=== PATIENT | male | born 1975 ===

== ENCOUNTER 2016-09-27 12:58 | Inpatient (IN) | payer OTHER ==
[~2016-09-27] VITALS: Ht 188 cm; Wt 74.4 kg
--- NOTE | 2016-09-27 15:26 | ED CLINICAL REPORT ---
Clinical Report - Physicians/Mid Levels [facility] [address] [place] [address] 09/27/2016 13:00 [id number] Time Seen: 13:46 Ernesto 14 2016. Arrived- By private vehicle. Historian- patient and family. HISTORY OF PRESENT ILLNESS Chief Complaint: VOMITING BLOOD. This started just prior to arrival, has been mild and is still present. The patient has had vomiting and abdominal pain but not had rectal pain. No constipation. (Patient was in the methadone clinic today, after taking his medications, he had emesis, hematemesis, has not cupful, bright red blood, and some epigastric pain, minimal pain now, however has nausea. NO melana, brown stool. NO h/o similar. Denies use of excessive nsaid, at times motrin twice a week, at times uses tylenol as well. Denies excessive aspirin use. Denies gerd/ pud. Denies any excessive etoh use.). No known contact with a sick individual. REVIEW OF SYSTEMS No dizziness, weakness, blurred vision or sore throat. No complaint of rectal foreign body. All systems otherwise negative, except as recorded above. PAST HISTORY Has not had GI bleeding. No rectal fissure. Problems: Hx of IVD use. Fall. Contusion. Scoliosis. Tetanus Status. Additional Surgeries: Fracture Repair. Medications: Methadone HCl Oral. Methadone HCl Oral. Methadone HCl Oral 150 mg, daily. Allergies: NKDA. None. SOCIAL HISTORY History of drug use: marijuana. No alcohol use. ADDITIONAL NOTES The nursing notes have been reviewed. PHYSICAL EXAM Vital Signs: 09/27/2016 13:42 BP: 127/99. HR: 71. RR: 19. O2 saturation: 100%. Temp: 98.7 F. Pain level now: 0/10. Appearance: Alert. Eyes: Eyes normal inspection. ENT: Nose normal. Pharynx normal. Neck: Normal inspection. CVS: Normal heart rate and rhythm. Heart sounds normal. Respiratory: No respiratory distress. Breath sounds normal. No accessory muscle use or decreased air movement. Abdomen: Mild tenderness in the epigastric area. Bowel sounds normal. Rectal: Dark and light stool. Rectal exam normal and nontender. Stool color normal. Stool heme negative. (POC test reference range: negative). No digital exam tenderness. (chaperoned with TOMMY HOANG). Neuro: Oriented X 3. No motor deficit. LABS, X-RAYS, AND EKG Laboratory Tests: CBC w Diff: (JOSE: 09/27/2016 14:29) ( [facility] 09/27/2016 14:48) Final results Test Result Flag Units (Reference) WHITE BLOOD COUNT 8.2 K/uL (4.5-11.5) RED BLOOD COUNT 5.14 M/uL (4.50-5.90) HEMOGLOBIN 15.2 gm/dL (13.5-17.5) HEMATOCRIT 45.9 % (41.0-53.0) MEAN CELL VOLUME 89 fL (80-100) MEAN CORPUSCULAR HGB 30 pg (26-34) MEAN CORPUSCULAR HGB CONC 33 g/dL (31-37) RED CELL DISTRIBUTION WIDTH 14.1 % (11.6-14.8) PLATELET COUNT 328 K/uL (150-400) NEUTROPHIL % 84.3 H % (50-75) LYMPH % 10.8 L % (25-40) MONO % 4.4 % (3-14) EOSINOPHIL % 0.1 % (0-4) BASOPHIL % 0.4 % (0-2) PT with INR: (JOSE: 09/27/2016 14:29) ( [facility] 09/27/2016 15:00) Final results Test Result Flag Units (Reference) INR 0.9 (0.8-1.2) Low Intensity Therapy: INR 1.5-2.0 PT range 18.5-23.1Mod.Intensity Therapy: INR 2.0-3.0 PT range 23.1-31.5High Intensity Therapy: INR 2.5-3.5 PT range 27.4-35.5High Intensity Therapy 2: INR 3.0-4.0 PT range 31.5-39.3 APTT 31 SECONDS (24-34) Urine Drug Screen: (JOSE: 09/27/2016 13:30) ( [facility] 09/27/2016 15:29) Final results Test Result Flag Units (Reference) AMPHETAMINE/METHAMPHETAMINE NEGATIVE (NEGATIVE) BARBITURATE NEGATIVE (NEGATIVE) BENZODIAZEPINE NEGATIVE (NEGATIVE) CANNABINOID POSITIVE H (NEGATIVE) COCAINE NEGATIVE (NEGATIVE) ECSTASY NEGATIVE (NEGATIVE) METHADONE POSITIVE H (NEGATIVE) OPIATE NEGATIVE (NEGATIVE) The urine drug screen is a qualitative screening test fordrug overdose and abuse. All screen results should beconsidered as presumptive.Drugs screened for are as follows:BenzodiazepinesCocaineAmphetamines/MetamphetaminesTHC (Tetrahydrocannabinol)OpiatesBarbituratesEcstasyMethadonePositive results are unconfirmed. For confirmation, notifythe lab for the specimen to be sent to the reference lab.All confirmations must be performed by a differentmethodology.The ingestion of natural herbal and plant productscontaining Ephedra/Ephedra metabolites can produce in urineone or more substances capable of cross reacting withamphetamine/methamphetamine immunoassays. These testsprovide a preliminary result only. A more specificalternative chemical method must be used to obtain aconfirmed analytical result. [id number]: (JOSE: 09/27/2016 14:29) ( FlgRcvd 09/27/2016 15:32) Final results Test Result Flag Units (Reference) HIV-1 P24 ANTIGEN NEGATIVE (NEGATIVE) HIV-1 AND OR HIV-2 ANTIBODY NEGATIVE (NEGATIVE) CMP: (JOSE: 09/27/2016 14:29) ( FlgRcvd 09/27/2016 15:07) Final results Test Result Flag Units (Reference) GLUCOSE 115 H mg/dL (70-110) BUN 5 L mg/dL (7-18) CREATININE 0.9 mg/dL (0.6-1.3) Estimated GFR >60 mL/min Estimated GFR- >60 mL/min Note: Persistent reduction over 3 months in eGFR<60 mL/min/1.73 m2 defines CKD. Patients with eGFR values>=60 mL/min/1.73 m2 may also have CKD if evidence ofpersistent proteinuria. Additional information may be foundat www.[email or web address].org. SODIUM 143 mmol/L (136-145) POTASSIUM 3.7 mmol/L (3.5-5.1) CHLORIDE 103 mmol/L (98-107) CARBON DIOXIDE 30 mmol/L (21-32) CALCIUM 9.3 mg/dL (8.5-10.1) TOTAL PROTEIN 8.9 H g/dL (6.4-8.2) ALBUMIN 4.1 g/dL (3.3-5.0) BILIRUBIN, TOTAL 0.6 mg/dL (0.0-1.0) ALKALINE PHOSPHATASE 69 U/L (46-116) AST (SGOT) 22 U/L (15-37) ALT (SGPT) 22 U/L (12-78) LIPASE 117 U/L (73-393) . PROGRESS AND PROCEDURES Course of Care: NG placed, pt pulled his first NG out, exposure of RN to face/ shirt, denies any mucos membrane exposures, will order HIV/HEP C, pt denies history, however prior IVDA. Second NG placed, patient does not like it, however tolerating it. Patient with signs of acute upper gi bleed, hemoccult neg from stool. Discussed case with DR. Parnell, who will consult. Discussed case with DR. Barlow who will see patient in er, hopsitalist. HIV neg in the er. Holding admit orders written by DR. Roque ER. 09/27/2016 13:42 BP: 127/99. HR: 71. RR: 19. O2 saturation: 100%. Temp: 98.7 F. Pain level now: 0/10. Patient is stable. Symptoms better. Patient/family counseled. Disposition: Discharged. CLINICAL IMPRESSION (Methadone). Upper GI Bleed. (Electronically signed by Chelita Crespo P.A.-C 09/27/2016 16:24)
--- NOTE | 2016-09-27 15:26 | ED CLINICAL REPORT ---
Clinical Report - Physicians/Mid Levels [facility] [address] [place] [address] 09/27/2016 13:00 [id number] Time Seen: 13:46 Ernesto 14 2016. Arrived- By private vehicle. Historian- patient and family. HISTORY OF PRESENT ILLNESS Chief Complaint: VOMITING BLOOD. This started just prior to arrival, has been mild and is still present. The patient has had vomiting and abdominal pain but not had rectal pain. No constipation. (Patient was in the methadone clinic today, after taking his medications, he had emesis, hematemesis, has not cupful, bright red blood, and some epigastric pain, minimal pain now, however has nausea. NO melana, brown stool. NO h/o similar. Denies use of excessive nsaid, at times motrin twice a week, at times uses tylenol as well. Denies excessive aspirin use. Denies gerd/ pud. Denies any excessive etoh use.). No known contact with a sick individual. REVIEW OF SYSTEMS No dizziness, weakness, blurred vision or sore throat. No complaint of rectal foreign body. All systems otherwise negative, except as recorded above. PAST HISTORY Has not had GI bleeding. No rectal fissure. Problems: Hx of IVD use. Fall. Contusion. Scoliosis. Tetanus Status. Additional Surgeries: Fracture Repair. Medications: Methadone HCl Oral. Methadone HCl Oral. Methadone HCl Oral 150 mg, daily. Allergies: NKDA. None. SOCIAL HISTORY History of drug use: marijuana. No alcohol use. ADDITIONAL NOTES The nursing notes have been reviewed. PHYSICAL EXAM Vital Signs: 09/27/2016 13:42 BP: 127/99. HR: 71. RR: 19. O2 saturation: 100%. Temp: 98.7 F. Pain level now: 0/10. Appearance: Alert. Eyes: Eyes normal inspection. ENT: Nose normal. Pharynx normal. Neck: Normal inspection. CVS: Normal heart rate and rhythm. Heart sounds normal. Respiratory: No respiratory distress. Breath sounds normal. No accessory muscle use or decreased air movement. Abdomen: Mild tenderness in the epigastric area. Bowel sounds normal. Rectal: Dark and light stool. Rectal exam normal and nontender. Stool color normal. Stool heme negative. (POC test reference range: negative). No digital exam tenderness. (chaperoned with TOMMY HOANG). Neuro: Oriented X 3. No motor deficit. LABS, X-RAYS, AND EKG Laboratory Tests: CBC w Diff: (JOSE: 09/27/2016 14:29) ( [facility] 09/[facility] 14[facility]48) Final results Test Result Flag Units (Reference) WHITE BLOOD COUNT 8.2 K/uL (4.5-11.5) RED BLOOD COUNT 5.14 M/uL (4.50-5.90) HEMOGLOBIN 15.2 gm/dL (13.5-17.5) HEMATOCRIT 45.9 % (41.0-53.0) MEAN CELL VOLUME 89 fL (80-100) MEAN CORPUSCULAR HGB 30 pg (26-34) MEAN CORPUSCULAR HGB CONC 33 g/dL (31-37) RED CELL DISTRIBUTION WIDTH 14.1 % (11.6-14.8) PLATELET COUNT 328 K/uL (150-400) NEUTROPHIL % 84.3 H % (50-75) LYMPH % 10.8 L % (25-40) MONO % 4.4 % (3-14) EOSINOPHIL % 0.1 % (0-4) BASOPHIL % 0.4 % (0-2) PT with INR: (JOSE: 09/27/2016 14:29) ( [facility] 09/27/2016 15:00) Final results Test Result Flag Units (Reference) INR 0.9 (0.8-1.2) Low Intensity Therapy: INR 1.5-2.0 PT range 18.5-23.1Mod.Intensity Therapy: INR 2.0-3.0 PT range 23.1-31.5High Intensity Therapy: INR 2.5-3.5 PT range 27.4-35.5High Intensity Therapy 2: INR 3.0-4.0 PT range 31.5-39.3 APTT 31 SECONDS (24-34) Urine Drug Screen: (JOSE: 09/27/2016 13:30) ( [facility] 09/27/2016 15:29) Final results Test Result Flag Units (Reference) AMPHETAMINE/METHAMPHETAMINE NEGATIVE (NEGATIVE) BARBITURATE NEGATIVE (NEGATIVE) BENZODIAZEPINE NEGATIVE (NEGATIVE) CANNABINOID POSITIVE H (NEGATIVE) COCAINE NEGATIVE (NEGATIVE) ECSTASY NEGATIVE (NEGATIVE) METHADONE POSITIVE H (NEGATIVE) OPIATE NEGATIVE (NEGATIVE) The urine drug screen is a qualitative screening test fordrug overdose and abuse. All screen results should beconsidered as presumptive.Drugs screened for are as follows:BenzodiazepinesCocaineAmphetamines/MetamphetaminesTHC (Tetrahydrocannabinol)OpiatesBarbituratesEcstasyMethadonePositive results are unconfirmed. For confirmation, notifythe lab for the specimen to be sent to the reference lab.All confirmations must be performed by a differentmethodology.The ingestion of natural herbal and plant productscontaining Ephedra/Ephedra metabolites can produce in urineone or more substances capable of cross reacting withamphetamine/methamphetamine immunoassays. These testsprovide a preliminary result only. A more specificalternative chemical method must be used to obtain aconfirmed analytical result. [id number]: (JOSE: 09/27/2016 14:29) ( DegRcvd 09/27/2016 15:32) Final results Test Result Flag Units (Reference) HIV-1 P24 ANTIGEN NEGATIVE (NEGATIVE) HIV-1 AND OR HIV-2 ANTIBODY NEGATIVE (NEGATIVE) CMP: (JOSE: 09/27/2016 14:29) ( DegRcvd 09/27/2016 15:07) Final results Test Result Flag Units (Reference) GLUCOSE 115 H mg/dL (70-110) BUN 5 L mg/dL (7-18) CREATININE 0.9 mg/dL (0.6-1.3) Estimated GFR >60 mL/min Estimated GFR- >60 mL/min Note: Persistent reduction over 3 months in eGFR<60 mL/min/1.73 m2 defines CKD. Patients with eGFR values>=60 mL/min/1.73 m2 may also have CKD if evidence ofpersistent proteinuria. Additional information may be foundat www.kidney.org. SODIUM 143 mmol/L (136-145) POTASSIUM 3.7 mmol/L (3.5-5.1) CHLORIDE 103 mmol/L (98-107) CARBON DIOXIDE 30 mmol/L (21-32) CALCIUM 9.3 mg/dL (8.5-10.1) TOTAL PROTEIN 8.9 H g/dL (6.4-8.2) ALBUMIN 4.1 g/dL (3.3-5.0) BILIRUBIN, TOTAL 0.6 mg/dL (0.0-1.0) ALKALINE PHOSPHATASE 69 U/L (46-116) AST (SGOT) 22 U/L (15-37) ALT (SGPT) 22 U/L (12-78) LIPASE 117 U/L (73-393) . PROGRESS AND PROCEDURES Course of Care: NG placed, pt pulled his first NG out, exposure of RN to face/ shirt, denies any mucos membrane exposures, will order HIV/HEP C, pt denies history, however prior IVDA. Second NG placed, patient does not like it, however tolerating it. Patient with signs of acute upper gi bleed, hemoccult neg from stool. Discussed case with DR. Parnell, who will consult. Discussed case with DR. Barlow who will see patient in er, hopsitalist. HIV neg in the er. Holding admit orders written by DR. Roque ER. 09/27/2016 13:42 BP: 127/99. HR: 71. RR: 19. O2 saturation: 100%. Temp: 98.7 F. Pain level now: 0/10. Patient is stable. Symptoms better. Patient/family counseled. Disposition: Discharged. CLINICAL IMPRESSION (Methadone). Upper GI Bleed. (Electronically signed by Chelita Crespo P.A.-C 09/27/2016 16:24)
--- NOTE | 2016-09-27 15:27 | ED ORDER SUMMARY ---
..... Patient: JANELLE QUINONEZ JR OrderSheet [facility] VisitID: [id number] [address] [place] [address] 41y, M Registration Date/Time: 09/27/2016 ORDER SHEET Weight: 68.0 kg (stated) Allergies: None, NKDA GENERAL ORDERS: NG Tube (lavage till clear) (13:43 09/27/2016 EKoroleva P.A.-C) (15:16 KPage-Kuchan R.N.) CBC w Diff Urgent (13:43 09/27/2016 EKoroleva P.A.-C) (Ack 13:44 PWeiler ER Tech1) (14:58 KPage-Kuchan R.N.) CMP Urgent (13:43 09/27/2016 EKoroleva P.A.-C) (Ack 13:44 PWeiler ER Tech1) (14:58 KPage-Kuchan R.N.) PT with INR Urgent (13:43 09/27/2016 EKoroleva P.A.-C) (Ack 13:44 PWeiler ER Tech1) (14:58 KPage-Kuchan R.N.) PTT Urgent (13:43 09/27/2016 EKoroleva P.A.-C) (Ack 13:44 PWeiler ER Tech1) (14:58 KPage-Kuchan R.N.) Lipase Urgent (13:43 09/27/2016 EKoroleva P.A.-C) (Ack 13:44 PWeiler ER Tech1) (14:58 KPage-Kuchan R.N.) HIV I and II Urgent (14:47 09/27/2016 EKoroleva P.A.-C) (Ack 14:49 PWeiler ER Tech1) (14:58 KPage-Kuchan R.N.) HepCAB Urgent (14:47 09/27/2016 EKoroleva P.A.-C) (Ack 14:49 PWeiler ER Tech1) (14:58 KPage-Kuchan R.N.) Urine Drug Screen Urgent (14:57 09/27/2016 EKoroleva P.A.-C) (14:58 KPage-Kuchan R.N.) Vitals (15:11 09/27/2016 EKoroleva P.A.-C) (15:16 KPage-Kuchan R.N.) Type & Screen Urgent (16:10 09/27/2016 EKoroleva P.A.-C) (Ack 16:14 LNations ER Tech1) (16:25 EHassan R.N.) MEDICATION ORDERS: Phenergan IV 12.5 mg (HIGH ALERT MEDICATION, NOW) (13:43 09/27/2016 EKoroleva P.A.-C) (14:56 KPage-Kuchan R.N.) IV FLUIDS: IV NS : initial bolus 1000 mL (1000 mL/hr), then 1000 mL/hr for X1 (NOW); Sameer (13:43 09/27/2016 EKoroleva P.A.-C) (14:55 KPage-Kuchan R.N.) Reglan IV 10 mg (NOW) (13:43 09/27/2016 EKoroleva P.A.-C) (14:56 KPage-Kuchan R.N.) Dilaudid IV 2 mg (HIGH ALERT MEDICATION, NOW) (14:04 09/27/2016 EKoroleva P.A.-C) (14:57 KPage-Kuchan R.N.) Ativan IV 2 mg (HIGH ALERT MEDICATION, NOW) (14:04 09/27/2016 EKoroleva P.A.-C) (14:57 KPage-Kuchan R.N.) Protonix IVP 80mg 80 mg (Mix in NS 20ml over 4min) (14:05 09/27/2016 EKoroleva P.A.-C) (14:58 KPage-Kuchan R.N.) Dilaudid IV 2 mg (HIGH ALERT MEDICATION, NOW) (15:09 09/27/2016 EKoroleva P.A.-C) (15:20 KPage-Kuchan R.N.) ORDER SHEET NOTES: [Electronically signed by Chelita Crespo PJesicaAJesica-C (16:24 09/27/2016)] [Electronically signed by Zoey Fair R.N. (09/27/2016)] [Electronically locked/signed by Zoey Fair R.N. (09/27/2016)]
--- NOTE | 2016-09-27 15:27 | ED NURSING NOTES ---
Clinical Report - Nurses [place] [address] [place] [address] 09/27/2016 13:00 Patient: JANELLE QUINONEZ JR TRIAGE Triage time 13:42 Sep 27 2016. 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 Alert. No acute distress. SEPSIS SCREEN: Sepsis Screen: negative. Negative (no infection suspected/documented). --13:48 Adelina Denney R.N. 13:42 09/27/16. BP: 127/99. HR: 71. RR: 19. O2 saturation: 100%. Temp: 98.7 F. Pain level now: 0/10. --13:48 Adelina Denney R.N. Weight: 68 kg stated. Height/Length: 72 inches Per Patient. BMI: 20.3. --13:47 Adelina Denney R.N. Medications Methadone HCl Oral 150 mg, daily. --13:46 Adelina Denney R.N. Medication/allergy information source: the patient. --13:48 Adelina Denney R.N. Allergies None. --13:47 Adelina Denney R.N. History Arrived by private vehicle. Historian: patient. Accompanied by family. The patient has had nausea and vomiting. PAST MEDICAL HX: Immunizations: up-to-date. SOCIAL HX: Smoker- current status unknown. History of drug use: marijuana. No alcohol use. No infectious disease exposure. No known contact with a sick individual. ABUSE ASSESSMENT: No report of abuse. SELF HARM ASSESSMENT: A self harm assessment was performed. The patient answered "no" to the question "Do you have thoughts of harming or killing yourself?". FALL RISK ASSESSMENT: Fall risk assessment completed. No fall risk identified. NUTRITIONAL RISK ASSESSMENT: The nutritional risk assessment revealed no deficiencies. FUNCTIONAL ASSESSMENT: Functional assessment: no impairments noted. LEARNING NEEDS ASSESSMENT: The learning needs assessment revealed no barriers. SKIN INTEGRITY ASSESSMENT: Skin integrity risk assessment completed. No skin integrity risk identified. --13:48 Adelina Denney R.N. PROBLEMS: Hx of IVD use. Fall. Contusion. Scoliosis. Tetanus Status. --13:47 Adelina Denney R.N. ADDITIONAL SURGERIES: Fracture Repair. --13:47 Adelina Denney R.N. Interventions ID band on patient. --13:48 Adelina Denney R.N. PHYSICAL ASSESSMENT Ambulatory to room. Patient gowned. GENERAL / NEURO / PSYCH: Alert. Oriented X 4. RESPIRATORY: Respirations not labored. CVS: Capillary refill less than 2 seconds. GI / : Abdomen soft and nontender. Bowel sounds within normal limits. SKIN: Skin is warm and dry. --13:48 Adelina Denney R.N. NURSING PROGRESS NOTES Pulse oximeter and NIBP monitor placed on patient; monitor alarms on. Reassurance given. Patient identifiers checked. Call light placed in reach. Side rails up x 1. Bed placed in lowest position. Brakes of bed on. --13:48 Adelina Denney R.N. 14:09/27/2016 PHENERGAN (Promethazine HCl) IVP 12.5 mg given. via site #1. Allergies verified and confirmed 5 rights. IV patency established. IV site checked: no pain, redness, or swelling. IV flushed thoroughly pre- and post-medication administration. IVP given by RN. --14:56 Adelina Denney R.N. 14:11 09/27/2016 Dilaudid (HYDROmorphone HCl PF) IVP 2 mg given. via site #1. Allergies verified, confirmed 5 rights and sedative warning given to the patient and patient's family. IV patency established. IV site checked: no pain, redness, or swelling. IV flushed thoroughly pre- and post-medication administration. IVP given by RN. --14:57 Adelina Denney R.N. 14:12 09/27/2016 Reglan (Metoclopramide HCl) IVP 10 mg given. via site #1. Allergies verified and confirmed 5 rights. IV patency established. IV site checked: no pain, redness, or swelling. IV flushed thoroughly pre- and post-medication administration. IVP given by RN. --14:56 Adelina Denney R.N. 14:13 09/27/2016 Ativan (LORazepam) IVP 2 mg given. via site #1. Allergies verified, confirmed 5 rights and sedative warning given to the patient and patient's family. IV patency established. IV site checked: no pain, redness, or swelling. IV flushed thoroughly pre- and post-medication administration. IVP given by RN. --14:57 Adelina Denney R.N. 14:14 09/27/2016 PROTONIX (Pantoprazole Sodium) IVP 80 mg given. via site #1. Allergies verified and confirmed 5 rights. IV patency established. IV site checked: no pain, redness, or swelling. IV flushed thoroughly pre- and post-medication administration. IVP given by RN. --14:58 Adelina Denney R.N. 14:29 09/27/2016 Site #1 started via IV in the right forearm with an 20g angiocath; one attempt. Blood drawn: rainbow set. Labeled in the presence of the patient and sent to the lab. Saline lock flushed with 10 mL saline. --14:54 Adelina Denney R.N. 14:40 09/27/2016 Started bag #1 1000 mL IV Fluids IV NS (Saline); at 1000 mL/hr via site #1 via dial-a-flow. Allergies verified and confirmed 5 rights. IV patency established. IV site checked: no pain, redness, or swelling. IV flushed thoroughly pre- and post-medication administration. --14:55 Adelina Denney R.N. ( attempted to place NG, tube in place, stomach contents in tube, pt reached up and despite multiple attempts to calm patient, pt pulled NG spray stomach contents onto both RN's placing tube. PA notified, pt cleaned and will attempt to place NG). --15:00 Adelina Denney R.N. late entry - 14:00 PM. --15:18 Zoey Fair R.N. 14:00 09/27/16. BP: 131/88. HR: 82. RR: 16. O2 saturation: 98%. Pain level now: 0/10. --15:18 Zoey Fair R.N. 14:30 09/27/16. BP: 119/77. HR: 83. RR: 15. O2 saturation: 98%. Pain level now: 0/10. --15:19 Zoey Fair R.N. late entry - 14:30. --15:19 Zoey Fair R.N. 15:00 09/27/16. BP: 137/86. HR: 83. RR: 14. O2 saturation: 96% on room air. Pain level now: 0/10. --15:19 Zoey Fair R.N. 15:00. --15:19 Zoey Fair R.N. Pulse oximeter and NIBP monitor placed on patient. Reassurance given. Two patient identifiers checked. Call light placed in reach. Side rails up x 1. Bed placed in lowest position. Brakes of bed on. Care transferred and report received (CAMI Sahu). --15:20 Zoey Fair R.N. 15:03 09/27/2016 Dilaudid (HYDROmorphone HCl PF) IVP 2 mg given. via site #1. Allergies verified, confirmed 5 rights and sedative warning given to the patient. IV patency established. IV site checked: no pain, redness, or swelling. IV flushed thoroughly pre- and post-medication administration. IVP given by RN. --15:20 Adelina Denney R.N. ( NGT placed will less difficulty and more cooperation from pt, tolerated well, placed to LCWS as instructed, placement confirmed with auscultation. Dilaudid given for discomfort. Family at bedside. Will monitor). --15:39 Zoey Fair R.N. late entry - 15:00. Care transferred and report received (CAMI Sahu). --15:51 Zoey Fair R.N. ( h/p placed on chart. overview faxed to 2nd floor.). --16:19 Ewa Dean ER Tech1 Pulse oximeter and NIBP monitor placed on patient; monitor alarms on. Reassurance given. The patient is calm and resting quietly. GI / : Denies abdominal pain, nausea or vomiting. Call light placed in reach. --16:27 Zoey Fair R.N. 16:00 09/27/16. BP: 106/59. HR: 74. RR: 15. O2 saturation: 100% on room air. Temp: 98.3 F (oral). Pain level now: . --16:27 Zoey Fair R.N. DISPOSITION / DISCHARGE late entry - 16:45 PM. Departure time: 1651 PM. Condition at departure: stable. The goals identified in the patient's plan of care were met. Transported via stretcher by [facility]. Report was given. (CAMI Riddle). ( Pt transferred safely to unit, NGT in place. VSS, IV site intact). FALL RISK ASSESSMENT: Fall risk assessment completed. No fall risk identified. --22:25 Zoey Fair R.N. 16:50 09/27/16. BP: 115/57. HR: 75. RR: 16. O2 saturation: 100% on room air. Temp: 98.7 F. Pain level now: 05/26. --22:25 Zoey Fair R.N. Locked/Released at 09/27/2016 22:25 by Zoey Fair R.N.
--- NOTE | 2016-09-27 15:27 | ED ORDER SUMMARY ---
..... Patient: JANELLE QUINONEZ JR OrderSheet [facility] VisitID: [id number] [address] [place] [address] 41y, M Registration Date/Time: 09/27/2016 ORDER SHEET Weight: 68.0 kg (stated) Allergies: None, NKDA GENERAL ORDERS: NG Tube (lavage till clear) (13:43 09/27/2016 EKoroleva P.A.-C) (15:16 KPage-Kuchan R.N.) CBC w Diff Urgent (13:43 09/27/2016 EKoroleva P.A.-C) (Ack 13:44 PWeiler ER Tech1) (14:58 KPage-Kuchan R.N.) CMP Urgent (13:43 09/27/2016 EKoroleva P.A.-C) (Ack 13:44 PWeiler ER Tech1) (14:58 KPage-Kuchan R.N.) PT with INR Urgent (13:43 09/27/2016 EKoroleva P.A.-C) (Ack 13:44 PWeiler ER Tech1) (14:58 KPage-Kuchan R.N.) PTT Urgent (13:43 09/27/2016 EKoroleva P.A.-C) (Ack 13:44 PWeiler ER Tech1) (14:58 KPage-Kuchan R.N.) Lipase Urgent (13:43 09/27/2016 EKoroleva P.A.-C) (Ack 13:44 PWeiler ER Tech1) (14:58 KPage-Kuchan R.N.) HIV I and II Urgent (14:47 09/27/2016 EKoroleva P.A.-C) (Ack 14:49 PWeiler ER Tech1) (14:58 KPage-Kuchan R.N.) HepCAB Urgent (14:47 09/27/2016 EKoroleva P.A.-C) (Ack 14:49 PWeiler ER Tech1) (14:58 KPage-Kuchan R.N.) Urine Drug Screen Urgent (14:57 09/27/2016 EKoroleva P.A.-C) (14:58 KPage-Kuchan R.N.) Vitals (15:11 09/27/2016 EKoroleva P.A.-C) (15:16 KPage-Kuchan R.N.) Type & Screen Urgent (16:10 09/27/2016 EKoroleva P.A.-C) (Ack 16:14 LNations ER Tech1) (16:25 EHassan R.N.) MEDICATION ORDERS: Phenergan IV 12.5 mg (HIGH ALERT MEDICATION, NOW) (13:43 09/27/2016 EKoroleva P.A.-C) (14:56 KPage-Kuchan R.N.) IV FLUIDS: IV NS : initial bolus 1000 mL (1000 mL/hr), then 1000 mL/hr for X1 (NOW); Saemer (13:43 09/27/2016 EKoroleva P.A.-C) (14:55 KPage-Kuchan R.N.) Reglan IV 10 mg (NOW) (13:43 09/27/2016 EKoroleva P.A.-C) (14:56 KPage-Kuchan R.N.) Dilaudid IV 2 mg (HIGH ALERT MEDICATION, NOW) (14:04 09/27/2016 EKoroleva P.A.-C) (14:57 KPage-Kuchan R.N.) Ativan IV 2 mg (HIGH ALERT MEDICATION, NOW) (14:04 09/27/2016 EKoroleva P.A.-C) (14:57 KPage-Kuchan R.N.) Protonix IVP 80mg 80 mg (Mix in NS 20ml over 4min) (14:05 09/27/2016 EKoroleva P.A.-C) (14:58 KPage-Kuchan R.N.) Dilaudid IV 2 mg (HIGH ALERT MEDICATION, NOW) (15:09 09/27/2016 EKoroleva P.A.-C) (15:20 KPage-Kuchan R.N.) ORDER SHEET NOTES: [Electronically signed by Chelita Crespo PJesicaAJesica-C (16:24 09/27/2016)] [Electronically signed by Zoey Fair R.N. (09/27/2016)] [Electronically locked/signed by Zoey Fair R.N. (09/27/2016)]
[2016-09-27 16:50] VITALS: BP 117/73
[2016-09-27 18:42] VITALS: BP 118/73
[2016-09-27 22:26] VITALS: BP 97/53
--- NOTE | 2016-09-27 22:26 | ED MAR SUMMARY ---
..... Medication Administration Record [facility] [address] [address] Patient: JANELLE QUINONEZ Visit ID: [id number] 41y, M Weight: 68.0 kg Height/Length: 72 in BMI: 20.3 ALLERGIES: None, NKDA Given 14:07 09/27/2016 Adelina Denney R.N. Medication Administered: PHENERGAN [IVP] (PROMETHAZINE HCL), Dose: 12.5 mg IVP, Site: #1. Medication Ordered: Phenergan IV 12.5 mg (HIGH ALERT MEDICATION, NOW). Given 14:11 09/27/2016 Adelina Denney R.N. Medication Administered: DILAUDID [IVP] (HYDROMORPHONE HCL PF), Dose: 2 mg IVP, Site: #1. Medication Ordered: Dilaudid IV 2 mg (HIGH ALERT MEDICATION, NOW). Given 14:09/27/2016 Adelina Denney R.N. Medication Administered: REGLAN [IVP] (METOCLOPRAMIDE HCL), Dose: 10 mg IVP, Site: #1. Medication Ordered: Reglan IV 10 mg (NOW). Given 14:09/27/2016 Adelina Denney R.N. Medication Administered: ATIVAN [IVP] (LORAZEPAM), Dose: 2 mg IVP, Site: #1. Medication Ordered: Ativan IV 2 mg (HIGH ALERT MEDICATION, NOW). Given 14:09/27/2016 Adelina Denney R.N. Medication Administered: PROTONIX [IVP] (PANTOPRAZOLE SODIUM), Dose: 80 mg IVP, Site: #1. Medication Ordered: Protonix IVP 80mg 80 mg (Mix in NS 20ml over 4min). Start 14:40 09/27/2016 Adelina Denney R.N. Medication Administered: IV NS (SALINE), Dose: IV Fluids, Rate: 1000 mL/hr, Dispensed: 1000 mL bag, Site: #1 right forearm. Medication Ordered: IV NS : initial bolus 1000 mL (1000 mL/hr), then 1000 mL/hr for X1 (NOW); Sameer. Given 15:03 09/27/2016 Adelina Denney R.N. Medication Administered: DILAUDID [IVP] (HYDROMORPHONE HCL PF), Dose: 2 mg IVP, Site: #1 right forearm. Medication Ordered: Dilaudid IV 2 mg (HIGH ALERT MEDICATION, NOW).
--- NOTE | 2016-09-27 22:26 | ED MED RECONCILIATION SUMMARY ---
Patient: JANELLE QUINONEZ JR Medication Reconciliation Report [facility] VisitID: [id number] [address] [place] [address] 41y, M Registration Date/Time: 09/27/2016 Weight: 68.0 kg Height/Length: 72 in. BMI: 20.3 ALLERGIES: NKDA, None The patient's Home Medications are listed below: THE FOLLOWING MEDICATIONS NEED TO BE RECONCILED: Methadone HCl Oral 150 mg, daily Methadone HCl Oral Methadone HCl Oral The source(s) of the original Home Medication information: patient The following Medications were given to the patient in the Emergency Department: IV NS IV Fluids bolus 0, then 1000 mL/hr, administered: 09/27/2016 2:40:00 PM Reglan [IVP] IVP 10 mg, administered: 09/27/2016 2:12:00 PM PHENERGAN [IVP] IVP 12.5 mg, administered: 09/27/2016 2:07:00 PM Dilaudid [IVP] IVP 2 mg, administered: 09/27/2016 2:11:00 PM Ativan [IVP] IVP 2 mg, administered: 09/27/2016 2:13:00 PM PROTONIX [IVP] IVP 80 mg, administered: 09/27/2016 2:14:00 PM Dilaudid [IVP] IVP 2 mg, administered: 09/27/2016 3:03:00 PM The following Medications were prescribed to the patient: None.
--- NOTE | 2016-09-27 22:26 | ED DISCHARGE INSTRUCTIONS ---
Patient: ARVINDMacy JANELLE Quiroz JR General Instructions [facility] VisitID: [id number] [address] [place] [address] 41y, M Registration Date/Time: 09/27/2016 (Methadone). Upper GI Bleed. (Electronically signed by Chelita Crespo P.A.-C 09/27/2016 16:24)
--- NOTE | 2016-09-27 22:26 | ED MAR SUMMARY ---
..... Medication Administration Record [facility] [address] [facility] [facility] [place] [address] Patient: JANELLE QUINONEZ Visit ID: [id number] 41y, M Weight: 68.0 kg Height/Length: 72 in BMI: 20.3 ALLERGIES: None, NKDA Given 14:07 09/27/2016 Adelina Denney R.N. Medication Administered: PHENERGAN [IVP] (PROMETHAZINE HCL), Dose: 12.5 mg IVP, Site: #1. Medication Ordered: Phenergan IV 12.5 mg (HIGH ALERT MEDICATION, NOW). Given 14:11 09/27/2016 Adelina Denney R.N. Medication Administered: DILAUDID [IVP] (HYDROMORPHONE HCL PF), Dose: 2 mg IVP, Site: #1. Medication Ordered: Dilaudid IV 2 mg (HIGH ALERT MEDICATION, NOW). Given 14:09/27/2016 Adelina Denney R.N. Medication Administered: REGLAN [IVP] (METOCLOPRAMIDE HCL), Dose: 10 mg IVP, Site: #1. Medication Ordered: Reglan IV 10 mg (NOW). Given 14:09/27/2016 Adelina Denney R.N. Medication Administered: ATIVAN [IVP] (LORAZEPAM), Dose: 2 mg IVP, Site: #1. Medication Ordered: Ativan IV 2 mg (HIGH ALERT MEDICATION, NOW). Given 14:09/27/2016 Adelina Denney R.N. Medication Administered: PROTONIX [IVP] (PANTOPRAZOLE SODIUM), Dose: 80 mg IVP, Site: #1. Medication Ordered: Protonix IVP 80mg 80 mg (Mix in NS 20ml over 4min). Start 14:40 09/27/2016 Adelina Denney R.N. Medication Administered: IV NS (SALINE), Dose: IV Fluids, Rate: 1000 mL/hr, Dispensed: 1000 mL bag, Site: #1 right forearm. Medication Ordered: IV NS : initial bolus 1000 mL (1000 mL/hr), then 1000 mL/hr for X1 (NOW); Sameer. Given 15:03 09/27/2016 Adelina Denney R.N. Medication Administered: DILAUDID [IVP] (HYDROMORPHONE HCL PF), Dose: 2 mg IVP, Site: #1 right forearm. Medication Ordered: Dilaudid IV 2 mg (HIGH ALERT MEDICATION, NOW).
--- NOTE | 2016-09-27 22:26 | ED MED RECONCILIATION SUMMARY ---
Patient: JANELLE QUINONEZ JR Medication Reconciliation Report [facility] VisitID: [id number] [address] [place] [address] 41y, M Registration Date/Time: 09/27/2016 Weight: 68.0 kg Height/Length: 72 in. BMI: 20.3 ALLERGIES: NKDA, None The patient's Home Medications are listed below: THE FOLLOWING MEDICATIONS NEED TO BE RECONCILED: Methadone HCl Oral 150 mg, daily Methadone HCl Oral Methadone HCl Oral The source(s) of the original Home Medication information: patient The following Medications were given to the patient in the Emergency Department: IV NS IV Fluids bolus 0, then 1000 mL/hr, administered: 09/27/2016 2:40:00 PM Reglan [IVP] IVP 10 mg, administered: 09/27/2016 2:12:00 PM PHENERGAN [IVP] IVP 12.5 mg, administered: 09/27/2016 2:07:00 PM Dilaudid [IVP] IVP 2 mg, administered: 09/27/2016 2:11:00 PM Ativan [IVP] IVP 2 mg, administered: 09/27/2016 2:13:00 PM PROTONIX [IVP] IVP 80 mg, administered: 09/27/2016 2:14:00 PM Dilaudid [IVP] IVP 2 mg, administered: 09/27/2016 3:03:00 PM The following Medications were prescribed to the patient: None.
--- NOTE | 2016-09-27 22:26 | ED DISCHARGE INSTRUCTIONS ---
Patient: ARVINDMacy JANELLE Quiroz JR General Instructions [facility] VisitID: [id number] [address] [place] [address] 41y, M Registration Date/Time: 09/27/2016 (Methadone). Upper GI Bleed. (Electronically signed by Chelita Crespo P.A.-C 09/27/2016 16:24)
[2016-09-28] VITALS (10 sets, daily range): BP systolic 102–134; BP diastolic 68–98
--- NOTE | 2016-09-28 02:43 | HISTORY AND PHYSICAL ---
ADMITTED: 09/27/2016 CHIEF COMPLAINT: 1. Vomiting blood HISTORY OF PRESENT ILLNESS: This is a 41-year-old [place] male who woke up with a headache this morning, did not feel good and then started to have vomiting at 10 a.m., twice, with bloody vomitus and also he brought up the methadone he took and he called his primary care physician and was sent to the emergency department. The patient also had nausea. No abdominal pain. Normal regular bowel movements, did not take any nonsteroidal anti-inflammatory drugs and this is the first episode. MEDICAL/SURGICAL HISTORY: Past medical history is remarkable for IVDA, last one was 3 years ago. Surgical history is remarkable for arm surgery. Hospitalizations: None. MEDICATIONS: 1. Methadone total 150 mg daily. ALLERGIES: 1. NO KNOWN DRUG ALLERGY. SOCIAL HISTORY: The patient is , has 5 kids and lives with his . No history of smoking or alcohol abuse. Smokes marijuana. FAMILY HISTORY: Remarkable for hypertension. REVIEW OF SYSTEMS: No recent weight changes. No difficulty with vision or hearing. No runny nose or congestion or sore throat. No chest pain. No palpitations. No shortness of breath. GI symptoms as described above. No dysuria or frequency or incontinence. No arthralgia or myalgia. He had a headache this morning, but resolved. No tingling , no numbness. No dizziness. No localized weakness. No syncope. PHYSICAL EXAMINATION: VITAL SIGNS: Blood pressure 131/88, heart rate is 82, respirations 16, oxygen saturation is 98% on room air. GENERAL APPEARANCE: Well developed, well nourished, good body build, no acute distress at this moment. HEENT: Ears: Normal tympanic membranes. Mouth: Normal hypopharynx, no exudation, no erythema. Nose: Normal mucosa. NECK: Supple. No JVD. No carotid bruit. No palpable mass. SKIN: Warm and dry with good turgor. LUNGS: Clear to auscultation. No rhonchi or wheezing or crackles. HEART: Regular S1, S2. No murmur. No S3 was heard. ABDOMEN: Soft, nontender. Bowel sounds are positive. EXTREMITIES: No edema. Good peripheral pulses. No signs of DVT or cyanosis. MUSCULOSKELETAL: Grossly within normal limits. NEUROLOGIC: Alert and oriented x3. Cranial nerves are grossly intact. No motor deficits. Pupils are equal, round, and reactive to light. Extraocular movements are intact. No nystagmus. No cerebellar signs. Deep tendon reflexes are bilateral and symmetric. LAB/IMAGING: White blood count is 8.2, hemoglobin is 15.2, hematocrit 45.9, and platelet count is 328. PTT is 31. INR is 0.9, glucose is 115, BUN is 5, creatinine 0.9, sodium was 143, potassium 3.7, chloride is 103, CO2 is 30, calcium 9.3. Liver enzymes unremarkable. IMPRESSION: 1. Upper gastrointestinal bleed 2. Chronic methadone use 3. History of IV drug abuse. PLAN: The patient will be admitted on acute care telemetry since he is stable. We will obtain hematocrit and hemoglobin series every [address] Harrison has been consulted through the emergency department and he is aware of the patient. We will put the patient on Protonix IV and also morphine 2 mg every 4 hours for replacement of the methadone, also IV hydration. The patient will be scoped by Dr. Harrison.
--- NOTE | 2016-09-28 06:47 | CONSULTATION REPORT ---
DATE OF CONSULTATION: 09/27/2016 REFERRING PHYSICIAN: Siva Vargas MD. CHIEF COMPLAINT: 1. Hematemesis HISTORY OF PRESENT ILLNESS: The patient is a 41-year-old man who vomited coffee- ground material and red blood on 2 occasions earlier today. He apparently brought up a cup full or so. He reports that he did not have a precursor bout of gagging, but that he immediately blood on the first vomiting episode. Since being in the hospital, he had an NG tube in place and has not demonstrated melena or blood per nasogastric tube. MEDICAL/SURGICAL HISTORY: Past medical history of drug dependence, scoliosis. Past surgical history includes treatment for an arm injury about 10 or 15 years ago. He has not had any previous endoscopic procedures. He had a complete physical in 2016. MEDICATIONS: 1. Methadone 150 mg day. SOCIAL HISTORY: The patient is . He lives at home with his . He quit smoking about 3 years ago. He has a past history of heavy alcohol use, but quit drinking about 8 years ago. He does use cannabis. He does not currently use intravenous drugs, but has used them in the past. The patient works for the [employer]. 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 FAMILY HISTORY: His mother has high blood pressure and is age 60. He has 4 siblings and 5 children, 1 whom has seizures. REVIEW OF SYSTEMS: A multipoint review of systems was obtained by questionnaire. Pertinent positives include fatigue, pain, weakness, and soreness of gums and tooth problems, nausea and vomiting with this episode, including blood. He has had abdominal pain, but not any active or acute abdominal pain at the moment. He has had some backaches. PHYSICAL EXAMINATION: VITAL SIGNS: The patient's temperature is 98.9, pulse 60, respirations 16, blood pressure 117/73, room air saturation 95%. GENERAL: The patient has multiple tattoos. He is alert and cooperative. His mental status is normal. He is oriented to time and place, and worse. He has numerous family members in attendance. HEENT: Ears and nose without gross external lesions. His eyes are equal. He does not appear icteric. NECK: Without palpable masses. CHEST: Clear to auscultation. HEART: Regular, without murmur or gallop. ABDOMEN: Reveals no localized tenderness. He does not have obvious hepatosplenomegaly or ascites. Bowel sounds are active. EXTREMITIES: Symmetric. There is no odor, melena or gastrointestinal bleed in the room. LAB/IMAGING: Hemoglobin and hematocrit of 15.2 and 45.9, white count of 8.2. His platelet count is 328,000. Chemistries show glucose of 115. Electrolytes are normal. His liver enzymes and bilirubin are normal. Protein is 8.9. IMPRESSION: 1. Upper gastrointestinal bleed PLAN: I have recommended that the patient be treated with proton pump inhibitors and that we schedule him for an upper gastrointestinal endoscopy next available opportunity. The patient was made aware of the nature of this procedure as well as risks such as perforation and bleeding. He would like to proceed as described.
--- NOTE | 2016-09-28 07:24 | Progress Note ---
Subjective General Note Date: September 28, 2016 Admission Date: September 27, 2016 Hospital Day: 2 PCP: None Status: Inpatient, ACU Advanced Directive: FULL CODE Room: 203-B Admission History: The patient is a 41-year-old white male with a significant past make a history of opiate dependence/IVDA currently on replacement therapy with methadone presented to [facility] emergency department on the day of admission secondary to complaints of hematemesis. [facility] ER evaluation was consistent with hematemesis/ upper GI bleed. Secondary to the above, the patient was admitted by Herve Barlow M.D. for further evaluation and treatment. For other history present illness, past medical history, family history, social history, review of systems, and admission physical examination please see the patient's history and physical examination and ER visit note in the patient's medical record. Subjective: The patient states he is doing well today. No emesis overnight. No abdominal pain. No nausea. Patient requests: None Medications and Allergies Medications Current Medications Sig/Cosmo Start time Last Medication Dose Route Stop Time Status Admin Methadone HCl 50 MG Q8HR 09/28 1400 AC PO Pantoprazole Sodium 40 MG PPIBID 09/28 0930 AC 09/28 IV 0843 Lactated Ringer's 1,000 ML .[LINE SERVICE TECHNICIAN TO OR] 09/28 0800 AC 09/28 IV 1000 Dextrose/Sodium 1,000 ML ASDIRECTED 09/27 1600 AC 09/28 Chloride IV 0403 Ondansetron HCl 4 MG Q6H PRN 09/27 1600 AC IV Allergies Coded Allergies: NKA (09/28/16) Reconcile Medications Scheduled Medications Methadone HCl (Methadone HCl 10 MG) 10 MG TAB 150 MG PO DAILY (Reported) Physical Exam Vital Signs / I&Os Vital Signs Date Time Temp Pulse Resp B/P Pulse O2 O2 Flow FiO2 Ox Delivery Rate 09/28 0210 98.1 58 18 115/81 95 Room Air 0.0 09/28 0204 Room Air 09/27 2226 97.9 54 16 97/53 97 Room Air 0.0 09/27 1842 99.5 58 16 118/73 98 Room Air 0.0 09/27 1650 99.0 60 16 117/73 95 Room Air I&O 09/28 0000 09/27 1600 09/27 0800 Intake Total 1002 Output Total Balance 1002 General Appearance Alert, Oriented X3, Cooperative, No acute distress Lungs Clear to auscultation Cardiovascular Regular rate and rhythm, Normal S1 and S2 Abdomen Normal bowel sounds, Soft, No tenderness Extremities No cyanosis, No clubbing, No edema Neurological Cranial nerves intact, Strength 5/5 x4 ext's, No lateralizing signs Psych/Mental Status Mental status normal, Mood normal LAB Results Laboratory Tests 09/28 09/28 09/27 09/27 09/27 0530 0115 1429 1429 1330 Chemistry Plasma Sodium (136 - 145 mmol/L) 147 143 Plasma Potassium (3.5 - 5.1 mmol/L) 3.7 3.7 Plasma Chloride (98 - 107 mmol/L) 110 103 CO2 (Enzymatic) (21 - 32 mmol/L) 28 30 BUN (7 - 18 mg/dL) 3 5 Creatinine (0.6 - 1.3 mg/dL) 0.8 0.9 Est GFR ( Amer) (mL/min) >60 >60 Est GFR (Non-Af Amer) (mL/min) >60 >60 Glucose (70 - 110 mg/dL) 85 115 Plasma Calcium (8.5 - 10.1 mg/dL) 8.2 9.3 Total Bilirubin (0.0 - 1.0 mg/dL) 0.6 AST (15 - 37 U/L) 22 ALT (12 - 78 U/L) 22 Alkaline Phosphatase (46 - 116 U/L) 69 Total Protein (6.4 - 8.2 g/dL) 8.9 Albumin (3.3 - 5.0 g/dL) 4.1 Lipase (73 - 393 U/L) 117 Coagulation INR (0.8 - 1.2) 0.9 APTT (24 - 34 SECONDS) 31 Hematology WBC (4.5 - 11.5 K/uL) 5.0 8.2 RBC (4.50 - 5.90 M/uL) 4.02 5.14 Hgb (13.5 - 17.5 gm/dL) 11.8 11.9 15.2 Hct (41.0 - 53.0 %) 35.9 36.7 45.9 MCV (80 - 100 fL) 89 89 MCH (26 - 34 pg) 29 30 RDW (11.6 - 14.8 %) 14.2 14.1 Neut % (Auto) (50 - 75 %) 44.3 84.3 Lymph % (Auto) (25 - 40 %) 43.4 10.8 Navarro % (Auto) (3 - 14 %) 9.0 4.4 Eos % (Auto) (0 - 4 %) 2.5 0.1 Baso % (Auto) (0 - 2 %) 0.8 0.4 Plt Count, EDTA (150 - 400 K/uL) 256 328 PUBS MCHC (31 - 37 g/dL) 33 33 Serology Hepatitis C Antibody (0.0 - 0.9) <0.1 HIV 1&2 Antibody Screen (NEGATIVE) NEGATIVE HIV P24 Ag, Qual (NEGATIVE) NEGATIVE Toxicology Urine Opiates Screen (NEGATIVE) NEGATIVE Urine Methadone Screen (NEGATIVE) POSITIVE Ur Barbiturates Screen (NEGATIVE) NEGATIVE U Amphetamin/Meth Scrn (NEGATIVE) NEGATIVE MDMA (Ecstasy) Screen (NEGATIVE) NEGATIVE U Benzodiazepines Scrn (NEGATIVE) NEGATIVE Urine Cocaine Screen (NEGATIVE) NEGATIVE U Cannabinoids Screen (NEGATIVE) POSITIVE Assessment and Plan Problem List 1. Upper GI bleed Plan -Patient presents with history of upper GI bleed with hematemesis -Symptoms resolved with no further hematemesis or nausea -Protonix 40 mg IV twice a day -Follow serial hematocrits with drop of H&H from 15.2/45.9 to 11.8/35.9 -Dr. Harrison consulting for upper endoscopy today -Await upper endoscopy results 2. Opiate dependence Status Chronic Onset Date Unknown Plan -Patient with history of opiate dependence -Continue methadone 50 mg by mouth every 8 hours -No evidence of significant withdrawal -Outpatient follow-up with PCP/methadone clinic 3. Illicit drug use Status Chronic Onset Date Unknown Plan -patient with history of IVDA/marijuana use -Continue follow-up with treatment program -Encourage abstinence from use of marijuana 4. Anemia Status Acute Onset Date Unknown Plan -Patient with findings of mild anemia status post upper GI bleed -Monitor serial hematocrit -H&H this a.m. 11.8/35.5 Current status: Fair, stable Anticipated discharge date: Anticipated discharge this p.m. or in a.m. Anticipated discharge placement: Home Patient care time: Time in chart review, patient interview, physical exam, CPOE, and care documentation: >30 mins Visit to patient today: 2 Complexity of care: Moderate DVT prophylaxis: SCD For other recommendations regarding discharge diet, activity, followup, and discharge medications please see the patient's discharge instructions. Greater than 30 min. was spent in the patient's discharge preparation including discharge interview and physical examination, progress note, discharge instructions, and discharge summary E&M Codes Discharge: Inpt >30 min spent/[id number]
--- NOTE | 2016-09-28 11:31 | OPERATIVE REPORT ---
DATE OF SURGERY: 09/28/2016 SURGEON: Tre Harrison MD PREOPERATIVE DIAGNOSIS: 1. Gastrointestinal bleed POSTOPERATIVE DIAGNOSES: 1. Gastric ulcers 2. Erosive esophagitis 3. Hiatal hernia PROCEDURE PERFORMED: 1. Esophagogastroduodenoscopy with biopsy ANESTHESIA: Total IV general. INDICATIONS: The patient is a 41-year-old man presenting with hematemesis on 2 occasions. SURGICAL TECHNIQUE: The patient was taken to the endoscopy suite where total IV general was administered and the patient was placed in the left lateral decubitus position. A well-lubricated endoscope was inserted down the esophagus and into stomach under direct vision. In the esophagogastric junction, there was a sliding hiatal hernia. There were erosive changes at the squamocolumnar junction, consistent with erosive esophagitis. There were no varices seen. There was some brownish material and fresh clot in this area, suggesting this may be a source of recent bleeding. Upon entering the stomach, there was a single punched out ulcer about 8 mm in diameter on the greater curve of the stomach. There were also a number of shallow erosions in the prepyloric antrum. The duodenum was entered, and the duodenal bulb and first part of the duodenum were completely normal. On withdrawal, a single biopsy was taken from the gastric body for Helicobacter testing. There were no additional findings. The patient left in good condition.
[2016-09-28] MEDS ORDERED: METHADONE HCL10 MG PO (14:25)
[2016-09-28] MEDS ORDERED: CARAFATE EQUIVAL1 GM PO (15:41)
[2016-09-28] MEDS ORDERED: PROTONIX40 MG PO (15:41)
--- NOTE | 2016-09-28 15:46 | Provider's Discharge Care Plan ---
Problem, Goal, Plan Problem List 1. Peptic ulcer disease Goals: Improve disease control, Prevent disease progress Instructions: Follow up as directed, Take meds as directed, Avoid processed foods, Follow-up in one week with your family physician. Recheck a blood count one week for reevaluation of anemia. Avoid nonsteroidal anti-inflammatory medications
--- NOTE | 2016-09-28 15:49 | Discharge Summary ---
Discharge Summary Report Admit Date 09/27/16 Discharge Date 09/28/16 Admission Diagnosis 1. Upper GI bleed Discharge Diagnosis 1. Peptic ulcer disease 2. Esophagitis 3. Upper GI bleed 4. Anemia- mild Brief History The patient is a 41-year-old white male with a significant past make a history of opiate dependence/IVDA currently on replacement therapy with methadone presented to [facility] emergency department on the day of admission secondary to complaints of hematemesis. [facility] ER evaluation was consistent with hematemesis/ upper GI bleed. Secondary to the above, the patient was admitted by Herve Barlow M.D. for further evaluation and treatment. For other history present illness, past medical history, family history, social history, review of systems, and admission physical examination please see the patient's history and physical examination and ER visit note in the patient's medical record. Hospital Course The following problems and their management were noted during the patient's hospitalization: 1. Peptic ulcer disease The patient was admitted with findings of upper GI bleed. Subsequent upper endoscopy showed peptic ulcer disease and erosive esophagitis. These were deemed low risk for rebleeding per Dr. Tre Harrison. He recommended discharge at this time with outpatient follow-up. Medications on discharge were Protonix 40 mg by mouth twice a day and Carafate 1 g by mouth before meals and at bedtime. He will follow-up with his PCP in 1 week for reevaluation. No evidence of ongoing bleeding with stable hematocrit at the time of discharge. 2. Esophagitis See above 3. Upper GI bleed See above. No evidence of ongoing bleeding at the time of endoscopy. Endoscopy was suggestive low probability of rebleeding at the time of discharge. 4. Anemia- mild The patient experienced mild anemia status post GI bleed. H&H was stable at the time of discharge. Discharge H&H was noted to be 11.8/35.9 Lab/Imaging Laboratory Tests 09/28 09/28 0530 0115 Chemistry Plasma Sodium (136 - 145 mmol/L) 147 Plasma Potassium (3.5 - 5.1 mmol/L) 3.7 Plasma Chloride (98 - 107 mmol/L) 110 CO2 (Enzymatic) (21 - 32 mmol/L) 28 BUN (7 - 18 mg/dL) 3 Creatinine (0.6 - 1.3 mg/dL) 0.8 Est GFR ( Amer) (mL/min) >60 Est GFR (Non-Af Amer) (mL/min) >60 Glucose (70 - 110 mg/dL) 85 Plasma Calcium (8.5 - 10.1 mg/dL) 8.2 Hematology WBC (4.5 - 11.5 K/uL) 5.0 RBC (4.50 - 5.90 M/uL) 4.02 Hgb (13.5 - 17.5 gm/dL) 11.8 11.9 Hct (41.0 - 53.0 %) 35.9 36.7 MCV (80 - 100 fL) 89 MCH (26 - 34 pg) 29 RDW (11.6 - 14.8 %) 14.2 Neut % (Auto) (50 - 75 %) 44.3 Lymph % (Auto) (25 - 40 %) 43.4 Riley % (Auto) (3 - 14 %) 9.0 Eos % (Auto) (0 - 4 %) 2.5 Baso % (Auto) (0 - 2 %) 0.8 Plt Count, EDTA (150 - 400 K/uL) 256 PUBS MCHC (31 - 37 g/dL) 33 Microbiology Date/Time Procedure - Status Source Growth 09/28 1058 CLOtest - RECD GASTRIC Discharge Instructions/Meds For other recommendations regarding discharge diet, activity, followup, and discharge medications please see the patient's discharge instructions. Discharge condition: Good, improved Greater than 30 min. was spent in the patient's discharge preparation including discharge interview and physical examination, progress note, discharge instructions, and discharge summary The patient was interviewed and examined on the day of discharge. E&M Codes Discharge: Inpt >30 min spent/85730
== END 2016-09-28 16:35 | disposition home or self-care (01) | DRG 253 ==
LOC: ED SRH 12:58 → TRANS SRH 15:36 → ACUTE2 SRH 16:51
PROVIDERS: ADMIT Neuromusculoskeletal Medicine, Sports Medicine
PROC: 0DB68ZX Excision of Stomach, Via Natural or Artificial Opening Endoscopic, Diagnostic (ICD-10-PCS; principal; 2016-09-27)
DX: K92.0 Hematemesis (principal); K20.8 Other esophagitis; K25.9 Gastric ulcer, unspecified as acute or chronic, without hemorrhage or perforation; K44.9 Diaphragmatic hernia without obstruction or gangrene; F11.20 Opioid dependence, uncomplicated; D50.0 Iron deficiency anemia secondary to blood loss (chronic)
CPT/HCPCS: 50004; 60001; 82943; 83526; 90001; 90047; 90074; 90100; 90155; 90364; 90705; 91004; 91162; 91163; 92235; 92760; 92761; 92762; 92763; 92764; 92765; 92766; 92767; 92863; 94001; 94060; 95059; 99777